=== PATIENT | female | born 1965 | race Caucasian/White ===

== ENCOUNTER 2018-02-27 10:50 | Outpatient (CLI) | payer OTHER ==
[~2018-02-27 10:50] MED LIST: COZAAR100 MG PO; CYMBALTA60 MG PO; METFORMIN HCL850 MG PO; NABUMETONE500 MG PO; OMEGA 3 FISH OI1 CAP PO; PERCOCET 5/3251 TAB PO; REFRESH15 ML OP; RYBIX ODT50 MG PO; ZOCOR20 MG PO
== END 2018-02-27 11:07 | disposition home or self-care (01) ==
LOC: RAD 10:50
DX: S80.02XA Contusion of left knee, initial encounter (principal); S29.9XXA Unspecified injury of thorax, initial encounter